=== PATIENT | female | born 1980 | race Caucasian/White ===

== ENCOUNTER 2019-11-29 13:26 | Outpatient (CLI) | payer BC ==
--- NOTE | 2019-11-29 15:26 | MRI ---
MR the lumbar spine with and without contrast INDICATION: Chronic low back pain COMPARISON: None. TECHNIQUE: Multiplanar multisequence MR images were obtained of lumbar spine with and without IV cont rast. Contrast: 17 cc of MultiHance. FINDINGS: Bone marrow: Normal. Distal spinal cord and conus: Normal. Conus is seen to terminate at the L1 level. Visualized retroperitoneum and paraspinal soft tissues: Normal. No lymphadenopathy demonstrated. Vertebral levels: L5-S1: There is a large right paracentral cephalad extending disc extrusion measuring 1.8 x 1.7 cm in its greatest craniocaudad and mediolateral dimensions causing severe narrowing of the right lateral recess with contact and slight posterior displacement of the traversing right S1 nerve root. This is superimposed on a broad-based disc bulge which along with loss of disc space height and facet hypertrophy induces mild right neural foraminal narrowing. L4-5: Broad-based disc bulge with a small superimposed central disc protrusion causes mild ventral ef facement of the subarachnoid space and mild narrowing of the lateral recess bilaterally. The facet hypertrophy and along with the disc degenerative disease induces mild left neural foraminal narrowing . L3-4: No appreciable central canal or neuroforaminal narrowing. L2-3: No appreciable central canal or neuroforaminal narrowing. L1-L2: No appreciable central canal or neuroforaminal narrowing. T12-L1: No appreciable central canal or neuroforaminal narrowing. Postcontrast series: No abnormal enhancement demonstrated. IMPRESSION: 1. Large right paracentral, cephalad extending, disc extrusion at L5-S1 inducing severe narrowing of the right lateral recess with contact and posterior displacement of the traversing right S1 nerve root. 2. Small superimposed central disc protrusion and broad-based disc bulge at L4-5 inducing mild latera l recess narrowing. 3. Mild right L5-S1 and mild left L4-5 neural foraminal narrowing.
== END 2019-11-29 13:27 | disposition home or self-care (01) ==
LOC: SCSMRI 13:26
PROVIDERS: ATTEND Family Medicine
DX: M54.5 Low back pain (principal); R19.00 Intra-abdominal and pelvic swelling, mass and lump, unspecified site; M51.27 Other intervertebral disc displacement, lumbosacral region; M48.07 Spinal stenosis, lumbosacral region; G54.8 Other nerve root and plexus disorders; M48.061 Spinal stenosis, lumbar region without neurogenic claudication; M51.26 Other intervertebral disc displacement, lumbar region
CPT/HCPCS: 72158

== ENCOUNTER 2019-12-07 15:34 | Outpatient (CLI) | payer BC ==
[2019-12-07 16:03] LABS: #Eosinphils 0.1 thou/uL (0.0-0.7); #Lymphocytes 2.7 thou/uL (1.20-3.40); #Monocytes 0.4 thou/uL (0.11-0.59); #Neutrophils 3.3 thou/uL (1.40-6.50); %Basophils 0.3 % (0.0-1.0); %Eosinophils 1.5 % (0.0-10.0); %Lymphocytes 40.7 % (21.0-51.0); %Monocytes 6.7 % (0.0-10.0); %Neutrophils 50.8 % (42.0-75.0); Hemoglobin 13.4 g/dL (12.0-16.0); Mean Corpuscular HGB CONC 34.7 g/dL (32.0-36.0); Mean Corpuscular Hemoglobin 29.6 pg (27.0-31.0); Mean Corpuscular Volume 85.4 fL (78.0-98.0); Mean Platelet Volume 7.2 fL (7.4-10.4); Platelet Count 286 thou/uL (130-400); RBC Distribution Width 11.6 % (11.5-14.5); Red Blood Cell (RBC) Count 4.52 mill/uL (4.20-5.40); White Blood Cell (WBC) Count 6.6 thou/uL (4.8-10.8)
[2019-12-07 16:07] LABS: BHCG - Serum Negative (NEGATIVE); Pregs Control Background? CLEAR/WHITE (CLR/WHITE); Pregs Control Bar Appear? YES (CONTROL BAR)
[2019-12-07 16:21] LABS: Anion Gap 11 mmol/L (10-20); BUN (Urea Nitrogen) 12 mg/dL (7.0-18.7); Calc. Creatinine Clearance 0 mL/min (70-130); Calcium 9.1 mg/dL (7.8-10.44); Carbon Dioxide 26 mmol/L (22-29); Chloride 106 mmol/L (98-107); Estimated GFR-MDRD 83; Glucose 86 mg/dL (70-105); Potassium 3.9 mmol/L (3.5-5.1); Sodium 139 mmol/L (136-145)
== END 2019-12-07 15:35 | disposition home or self-care (01) ==
LOC: LABBT 15:34
PROVIDERS: ATTEND Specialist
DX: Z01.812 Encounter for preprocedural laboratory examination (principal); D21.9 Benign neoplasm of connective and other soft tissue, unspecified
CPT/HCPCS: 80048; 84703; 85025

== ENCOUNTER 2019-12-09 08:38 | Day surgery (SDC) | payer BC ==
[2019-12-07 15:25] VITALS: BMI 25.0
[2019-12-09] MEDS ORDERED: Acetaminophen 500 MG TAB ONE (08:54)
[2019-12-09] MEDS ORDERED: Ketorolac Tromethamine 30 MG/ML VIAL ONE (08:54)
[2019-12-09] MEDS ORDERED: Lidocaine 1% w/Epinephrine 1:100K 20 ML VIAL ONE (09:32)
[2019-12-09] MEDS ORDERED: Bupivacaine 0.25% HCL 30 ML VIAL ONE (09:32)
[2019-12-09] MEDS ORDERED: Scopolamine 1.5 mg/72 hour Patch ONE ×2 (09:49→10:17)
[2019-12-09] MEDS ORDERED: Fentanyl 100 MCG/2 ML VIAL ONE (10:00)
[2019-12-09] MEDS ORDERED: Meperidine HCl/PF 25 MG/ML VIAL ONE (11:34)
[2019-12-09] MEDS ORDERED: Lidocaine 1% PF 5 ML VIAL ONE (11:58)
[2019-12-09] MEDS ORDERED: Dexamethasone 20 MG/5 ML VIAL ONE (11:58)
[2019-12-09] MEDS ORDERED: PROPOFOL 200 MG/20 ML VIAL ONE (11:58)
[2019-12-09] MEDS ORDERED: Glycopyrrolate 0.2 MG/ML 5 ML SYRINGE ONE (11:58)
[2019-12-09] MEDS ORDERED: Ondansetron PF 4 MG/2 ML Vial ONE (11:58)
--- NOTE | 2019-12-10 09:27 | OP ---
DATE OF PROCEDURE: 12/09/2019 PREOPERATIVE DIAGNOSIS: 6 cm left flank intramuscular lipoma. POSTOPERATIVE DIAGNOSIS: 6 cm left flank intramuscular lipoma. PROCEDURE PERFORMED: Excision of a 6 cm left flank submuscular lipoma. ANESTHESIA: General endotracheal. INDICATIONS FOR PROCEDURE: The patient is a 39-year-old white female. She presents with a persistent and bothersome visible and palpable mass on the left flank. Ultrasound shows that this appears to be below the level of the superficial muscular layer and she is taken to the operating room at this time for excision. DESCRIPTION OF PROCEDURE: Informed consent was obtained. The patient was taken to the operating room, where general endotracheal anesthesia was obtained with the patient in supine position. She was rolled over to right lateral decubitus position using a toure bag device. The table was flexed to give optimal exposure of this mass. The patient was prepped with ChloraPrep and draped in sterile fashion. I utilized the ultrasound to definitively identify the location of the mass and marked its location on the skin. Local anesthetic was infiltrated using a mixture of 0.25% Marcaine and 1% lidocaine with epinephrine. Skin incision was created. Dissection was carried through skin and subcutaneous tissue. The superficial muscle was identified and incised. Just below this was an easily visible and palpable mass consistent with a lipoma. This was carefully dissected circumferentially and removed intact. Meticulous hemostasis was obtained with electrocautery. Additional local anesthetic was infiltrated. The wound was then closed in layers using interrupted sutures of 3-0 Vicryl to close the space and another of running suture of 3-0 Monocryl. Finally, the skin edges were approximated with a running subcuticular suture of 4-0 Monocryl. Dermabond was placed externally. There were no complications. The patient tolerated the procedure well and was taken to recovery room in stable condition. Job ID: [id number]
== END 2019-12-09 13:10 | disposition home or self-care (01) ==
LOC: SDC 08:38
PROVIDERS: ATTEND Specialist
PROC: 0KBG0ZZ Excision of Left Trunk Muscle, Open Approach (ICD-10-PCS; principal; 2019-12-09)
DX: D17.1 Benign lipomatous neoplasm of skin and subcutaneous tissue of trunk (principal); Z88.2 Allergy status to sulfonamides
CPT/HCPCS: 88304; J0690; J1100; J1885; J2001; J2175; J2405; J2704; J3010; S0020

== ENCOUNTER 2024-11-05 11:00 | Outpatient (CLI) | payer BC | END 2024-11-05 11:01 | disposition home or self-care (01) | LOC: BICRAD 11:00 | PROVIDERS: ATTEND Family Medicine | DX: R05.9 Cough, unspecified (principal) | CPT/HCPCS: 71046 ==